=== PATIENT | male | born 1970 | race Caucasian/White ===

== ENCOUNTER 2017-09-17 19:43 | Emergency (ER) | payer MEDICARE ==
[2017-09-17 20:15] LABS: BASOPHILS 0.1 % (0-2); EOSINOPHILS 1.6 % (0-7); HEMATOCRIT 36.9 % (42.0-54.0); HEMOGLOBIN 12.5 g/dL (13.5-17.5); IMMATURE GRANULOCYTES 0.3 % (0-5); LYMPHOCYTES 16.5 % (15-50); MCH 32.5 pg (26.0-34.0); MCHC 33.9 g/dL (31.0-37.0); MCV 95.8 fL (80.0-100.0); MEAN PLATELET VOLUME 11.3 fL (7.4-10.4); MONOCYTES 7.8 % (2-11); NEUTROPHILS 73.7 % (40-80); PLATELET COUNT 166 10x3/uL (130-400); RBC 3.85 10x6/uL (4.20-6.10); RDW 13.1 % (11.5-14.5); WBC 13.6 10x3/uL (4.8-10.8)
[2017-09-17 20:21] LABS: APPEARANCE CLEAR (CLEAR); BILIRUBIN NEGATIVE (NEGATIVE); COLOR DK YELLOW (YELLOW); GLUCOSE NEGATIVE (NEGATIVE); KETONE NEGATIVE (NEGATIVE); NITRITE NEGATIVE (NEGATIVE); PROTEIN NEGATIVE (NEGATIVE); UROBILINOGEN NORMAL (NORMAL)
[2017-09-17 20:30] LABS: ALBUMIN 3.4 g/dL (3.4-5.0); ANION GAP 14.5 mmol/L (8-16); BILIRUBIN - TOTAL 0.62 mg/dL (0.2-1.3); CALCIUM 8.4 mg/dL (8.5-10.1); CARBON DIOXIDE 27.2 mmol/L (21.0-32.0); CREATININE - SERUM 1.3 mg/dL (0.6-1.3); POTASSIUM - SERUM 3.7 mmol/L (3.5-5.1); PROTEIN - SERUM 7.5 g/dL (6.4-8.2)
[2017-09-17 20:41] LABS: BACTERIA FEW /hpf (NONE SEEN); EPITHELIAL CELLS OCC /hpf (0-5); MUCUS <1+ /lpf (NONE SEEN); RED CELLS - URINE 0-5 /hpf (0-5); WHITE CELLS - URINE 0-5 /hpf (0-5)
[2017-09-17 22:06] LABS: PRO BNP 1899 pg/mL (0-125)
[2017-09-17 22:08] LABS: TROPONIN-I < 0.017 ng/mL (0.000-0.060)
== END 2017-09-18 00:40 | disposition home or self-care (01) ==
LOC: D.ER 19:43
PROVIDERS: Family Medicine
DX: J18.9 Pneumonia, unspecified organism (principal)

== ENCOUNTER 2017-12-18 10:17 | Emergency (ER) | payer MEDICARE | END 2017-12-18 13:08 | disposition home or self-care (01) | LOC: D.ER 10:17 | DX: L03.113 Cellulitis of right upper limb (principal); M65.9 Synovitis and tenosynovitis, unspecified; F17.200 Nicotine dependence, unspecified, uncomplicated ==

== ENCOUNTER 2017-12-26 10:06 | Emergency (ER) | payer MEDICARE | END 2017-12-26 15:10 | disposition left against medical advice (07) | LOC: D.ER 10:06 | DX: M79.641 Pain in right hand (principal) ==

== ENCOUNTER 2018-02-15 22:25 | Emergency (ER) | payer MEDICARE ==
[2018-02-15 23:32] LABS: BASOPHILS 0.2 % (0-2); EOSINOPHILS 2.2 % (0-7); HEMATOCRIT 40.5 % (42.0-54.0); HEMOGLOBIN 14.1 g/dL (13.5-17.5); IMMATURE GRANULOCYTES 0.3 % (0-5); LYMPHOCYTES 18.1 % (15-50); MCH 32.8 pg (26.0-34.0); MCHC 34.8 g/dL (31.0-37.0); MCV 94.2 fL (80.0-100.0); MEAN PLATELET VOLUME 10.8 fL (7.4-10.4); MONOCYTES 8.8 % (2-11); NEUTROPHILS 70.4 % (40-80); PLATELET COUNT 197 10x3/uL (130-400); RDW 13.4 % (11.5-14.5); WBC 16.7 10x3/uL (4.8-10.8)
[2018-02-15 23:46] LABS: ALBUMIN 3.7 g/dL (3.4-5.0); ANION GAP 15.3 mmol/L (8-16); BILIRUBIN - TOTAL 0.67 mg/dL (0.2-1.3); CALCIUM 8.6 mg/dL (8.5-10.1); CARBON DIOXIDE 25.7 mmol/L (21.0-32.0); CREATININE - SERUM 1.6 mg/dL (0.6-1.3); PROTEIN - SERUM 7.2 g/dL (6.4-8.2)
[2018-02-16 00:58] LABS: APPEARANCE CLEAR (CLEAR); BILIRUBIN NEGATIVE (NEGATIVE); COLOR YELLOW (YELLOW); GLUCOSE NEGATIVE (NEGATIVE); KETONE NEGATIVE (NEGATIVE); NITRITE NEGATIVE (NEGATIVE); PROTEIN NEGATIVE (NEGATIVE); UROBILINOGEN NORMAL (NORMAL)
== END 2018-02-16 02:56 | disposition home or self-care (01) ==
LOC: D.ER 22:25
PROVIDERS: Emergency Medicine
DX: R10.9 Unspecified abdominal pain (principal); D72.829 Elevated white blood cell count, unspecified; F17.200 Nicotine dependence, unspecified, uncomplicated

== ENCOUNTER 2018-05-28 16:59 | Emergency (ER) | payer MEDICARE ==
[~2018-05-28] VITALS: Ht 175.3 cm; Wt 77.3 kg
[2018-05-28 17:19] VITALS: Ht 175.3 cm; Wt 77.3 kg
[2018-05-28] MEDS ORDERED: ZOCOR80 MG PO (17:21)
[2018-05-28] MEDS ORDERED: OMEPRAZOLE40 MG PO (17:21)
[2018-05-28] MEDS ORDERED: ZOCOR10 MG PO (17:21)
[2018-05-28] MEDS ORDERED: OXYCONTIN15 MG PO (17:21)
[2018-05-28] MEDS ORDERED: PROAIR HFA8.5 GM INH (17:22)
[2018-05-28 17:40] LABS: BASOPHILS 0.4 % (0-2); EOSINOPHILS 4.3 % (0-7); HEMATOCRIT 48.1 % (42.0-54.0); HEMOGLOBIN 17.1 g/dL (13.5-17.5); IMMATURE GRANULOCYTES 0.4 % (0-5); LYMPHOCYTES 28.9 % (15-50); MCH 32.6 pg (26.0-34.0); MCHC 35.6 g/dL (31.0-37.0); MCV 91.8 fL (80.0-100.0); MEAN PLATELET VOLUME 11.3 fL (7.4-10.4); MONOCYTES 5.4 % (2-11); NEUTROPHILS 60.6 % (40-80); PLATELET COUNT 261 10x3/uL (130-400); RBC 5.24 10x6/uL (4.20-6.10); WBC 13.8 10x3/uL (4.8-10.8)
[2018-05-28 18:02] LABS: ALBUMIN 3.9 g/dL (3.4-5.0); ALKALINE PHOSPHATASE 98 U/L (46-116); ALT (SGPT) 22 U/L (10-68); BILIRUBIN - TOTAL 0.26 mg/dL (0.2-1.3); CALC OSMOLALITY 277 mosm/kg (275-300); CALCIUM 9.3 mg/dL (8.5-10.1); CARBON DIOXIDE 25.1 mmol/L (21.0-32.0); CHLORIDE - SERUM 105 mmol/L (98-107); GLUCOSE 102 mg/dL (74-106); POTASSIUM - SERUM 4.2 mmol/L (3.5-5.1); PROTEIN - SERUM 8.2 g/dL (6.4-8.2); SODIUM 140 mmol/L (136-145); UREA NITROGEN 9 mg/dL (7-18); eGFR NON AFRICAN AMERICAN 85 mL/min (90-120)
[2018-05-28 22:18] VITALS: BP 134/71
== END 2018-05-28 21:29 | disposition home or self-care (01) ==
LOC: D.ER 16:59
PROVIDERS: Family Medicine
DX: R10.31 Right lower quadrant pain (principal); Z87.19 Personal history of other diseases of the digestive system; R11.2 Nausea with vomiting, unspecified

== ENCOUNTER 2018-09-13 12:44 | Emergency (ER) | payer MEDICARE ==
[~2018-09-13] VITALS: Ht 175.3 cm; Wt 81.8 kg
[~2018-09-13 12:44] MED LIST: OMEPRAZOLE40 MG PO; OXYCONTIN15 MG PO; PROAIR HFA8.5 GM INH; ZOCOR10 MG PO; ZOCOR80 MG PO
[2018-09-13 12:52] VITALS: BP 138/75; Ht 175.3 cm; Wt 81.8 kg
[2018-09-13] MEDS ORDERED: XANAX1 MG PO (12:55)
[2018-09-13 13:56] LABS: ALBUMIN 3.8 g/dL (3.4-5.0); ANION GAP 18.6 mmol/L (8-16); BILIRUBIN - TOTAL 0.82 mg/dL (0.2-1.3); CALCIUM 8.7 mg/dL (8.5-10.1); CARBON DIOXIDE 23.3 mmol/L (21.0-32.0); CREATININE - SERUM 1.6 mg/dL (0.6-1.3); POTASSIUM - SERUM 3.9 mmol/L (3.5-5.1); PROTEIN - SERUM 7.6 g/dL (6.4-8.2)
[2018-09-13 13:58] LABS: APPEARANCE CLEAR (CLEAR); BASOPHILS 0.3 % (0-2); BILIRUBIN NEGATIVE (NEGATIVE); COLOR YELLOW (YELLOW); EOSINOPHILS 1.1 % (0-7); GLUCOSE NEGATIVE (NEGATIVE); HEMOGLOBIN 13.9 g/dL (13.5-17.5); IMMATURE GRANULOCYTES 0.4 % (0-5); KETONE NEGATIVE (NEGATIVE); LYMPHOCYTES 15.2 % (15-50); MCH 32.6 pg (26.0-34.0); MCHC 34.8 g/dL (31.0-37.0); MCV 93.7 fL (80.0-100.0); MEAN PLATELET VOLUME 11.7 fL (7.4-10.4); MONOCYTES 10.3 % (2-11); NEUTROPHILS 72.7 % (40-80); NITRITE NEGATIVE (NEGATIVE); PROTEIN NEGATIVE (NEGATIVE); RBC 4.27 10x6/uL (4.20-6.10); RDW 14.2 % (11.5-14.5); SPECIFIC GRAVITY 1.015 (1.005-1.020); UROBILINOGEN NORMAL (NORMAL); WBC 18.4 10x3/uL (4.8-10.8)
[2018-09-13 13:59] LABS: PLATELET COUNT 201 10x3/uL (130-400)
== END 2018-09-13 17:16 | disposition left against medical advice (07) ==
LOC: D.ER 12:44
PROVIDERS: Family Medicine
DX: R10.31 Right lower quadrant pain (principal)

== ENCOUNTER → 2018-10-04 | Emergency (ER) | payer MEDICARE ==
[2018-09-13 12:52] VITALS: BMI 26.6
[~2018-10-04] MED LIST changes: +XANAX1 MG PO
== END ==
LOC: D.ER 18:10
DX: M54.2 Cervicalgia (principal); M54.9 Dorsalgia, unspecified

== ENCOUNTER 2018-11-14 11:58 | Emergency (ER) | payer MEDICARE ==
[~2018-11-14] VITALS: Ht 175.3 cm; Wt 81.8 kg
[2018-11-14 12:02] VITALS: Ht 175.3 cm; Wt 81.8 kg
[2018-11-14 12:53] LABS: BASOPHILS 0.3 % (0-2); EOSINOPHILS 7.8 % (0-7); HEMATOCRIT 35.8 % (42.0-54.0); HEMOGLOBIN 12.4 g/dL (13.5-17.5); IMMATURE GRANULOCYTES 0.2 % (0-5); LYMPHOCYTES 26.3 % (15-50); MCH 32.6 pg (26.0-34.0); MCHC 34.6 g/dL (31.0-37.0); MCV 94.2 fL (80.0-100.0); MONOCYTES 6.4 % (2-11); PLATELET COUNT 213 10x3/uL (130-400); RDW 13.8 % (11.5-14.5)
[2018-11-14 13:03] LABS: ALBUMIN 3.1 g/dL (3.4-5.0); ALKALINE PHOSPHATASE 61 U/L (46-116); ALT (SGPT) 14 U/L (10-68); BILIRUBIN - TOTAL 0.25 mg/dL (0.2-1.3); CALC OSMOLALITY 277 mosm/kg (275-300); CALCIUM 8.4 mg/dL (8.5-10.1); CARBON DIOXIDE 25.8 mmol/L (21.0-32.0); CHLORIDE - SERUM 104 mmol/L (98-107); CREATININE - SERUM 1.1 mg/dL (0.6-1.3); POTASSIUM - SERUM 3.7 mmol/L (3.5-5.1); PROTEIN - SERUM 6.4 g/dL (6.4-8.2); SODIUM 139 mmol/L (136-145); UREA NITROGEN 8 mg/dL (7-18); eGFR NON AFRICAN AMERICAN 76 mL/min (90-120)
[2018-11-14 13:06] LABS: AMYLASE - SERUM 33 U/L (25-115); LIPASE 76 U/L (73-393); TROPONIN-I < 0.017 ng/mL (0.000-0.060)
[2018-11-14 13:07] LABS: GLUCOSE 137 mg/dL (74-106)
[2018-11-14 13:25] LABS: APPEARANCE CLEAR (CLEAR); BILIRUBIN NEGATIVE (NEGATIVE); COLOR YELLOW (YELLOW); GLUCOSE NEGATIVE (NEGATIVE); KETONE NEGATIVE (NEGATIVE); NITRITE NEGATIVE (NEGATIVE); PROTEIN NEGATIVE (NEGATIVE); SPECIFIC GRAVITY 1.005 (1.005-1.020)
[2018-11-14] MEDS ORDERED: ROBAXIN500 MG PO (14:31)
[2018-11-14] MEDS ORDERED: TORADOL10 MG PO (14:31)
[2018-11-14 15:12] VITALS: BP 142/88
== END 2018-11-14 15:13 | disposition home or self-care (01) ==
LOC: D.ER 11:58
PROVIDERS: Family Medicine
DX: R10.30 Lower abdominal pain, unspecified (principal); S16.1XXA Strain of muscle, fascia and tendon at neck level, initial encounter; Y04.2XXA Assault by strike against or bumped into by another person, initial encounter; Y93.89 Activity, other specified; Y92.89 Other specified places as the place of occurrence of the external cause; R07.81 Pleurodynia; M54.2 Cervicalgia

== ENCOUNTER 2018-12-20 07:22 | Outpatient (CLI) | payer MEDICARE ==
[2018-11-14 12:02] VITALS: BMI 26.6
[~2018-12-20 07:22] MED LIST changes: +ROBAXIN500 MG PO; +TORADOL10 MG PO
== END 2018-12-20 09:05 | disposition home or self-care (01) ==
LOC: D.OPS 07:22
DX: K21.9 Gastro-esophageal reflux disease without esophagitis (principal)

== ENCOUNTER 2019-02-15 20:46 | Inpatient (IN) | payer MEDICARE ==
[~2019-02-15 20:46] MED LIST changes: +OXY IR30 MG PO; +OXYCODONE HCL5 M1 PO; +ZETIA10 MG PO; +ZOFRAN ODT4 MG/UDTAB PO
[2019-02-15 21:45] LABS: BASOPHILS 0.3 % (0-2); EOSINOPHILS 4.6 % (0-7); HEMATOCRIT 34.7 % (42.0-54.0); IMMATURE GRANULOCYTES 0.2 % (0-5); LYMPHOCYTES 17.1 % (15-50); MCH 32.2 pg (26.0-34.0); MCHC 34.6 g/dL (31.0-37.0); MEAN PLATELET VOLUME 10.7 fL (7.4-10.4); MONOCYTES 9.5 % (2-11); NEUTROPHILS 68.3 % (40-80); PLATELET COUNT 273 10x3/uL (130-400); RBC 3.73 10x6/uL (4.20-6.10); RDW 13.6 % (11.5-14.5); WBC 18.2 10x3/uL (4.8-10.8)
[2019-02-15 21:54] LABS: ALBUMIN 2.9 g/dL (3.4-5.0); ALKALINE PHOSPHATASE 76 U/L (46-116); ALT (SGPT) 39 U/L (10-68); AMYLASE - SERUM 25 U/L (25-115); BILIRUBIN - TOTAL 0.36 mg/dL (0.2-1.3); CALC OSMOLALITY 268 mosm/kg (275-300); CALCIUM 8.5 mg/dL (8.5-10.1); CARBON DIOXIDE 29.7 mmol/L (21.0-32.0); CHLORIDE - SERUM 99 mmol/L (98-107); CREATININE - SERUM 1.1 mg/dL (0.6-1.3); LIPASE 63 U/L (73-393); POTASSIUM - SERUM 3.8 mmol/L (3.5-5.1); PROTEIN - SERUM 7.1 g/dL (6.4-8.2); SODIUM 136 mmol/L (136-145); UREA NITROGEN 7 mg/dL (7-18); eGFR NON AFRICAN AMERICAN 76 mL/min (90-120)
[2019-02-15 21:55] LABS: GLUCOSE 82 mg/dL (74-106)
[2019-02-15 23:49] VITALS: BP 130/82
[2019-02-16] VITALS (7 sets, daily range): BP systolic 101–148; BP diastolic 58–88; BMI 26.2; BMI 26.1
[2019-02-16 08:12] LABS: APPEARANCE CLEAR (CLEAR); BILIRUBIN NEGATIVE (NEGATIVE); COLOR YELLOW (YELLOW); GLUCOSE NEGATIVE (NEGATIVE); KETONE NEGATIVE (NEGATIVE); NITRITE NEGATIVE (NEGATIVE); PROTEIN NEGATIVE (NEGATIVE); UROBILINOGEN NORMAL (NORMAL)
[2019-02-16 09:14] LABS: BASOPHILS 0.4 % (0-2); EOSINOPHILS 8.1 % (0-7); HEMATOCRIT 34.8 % (42.0-54.0); HEMOGLOBIN 11.8 g/dL (13.5-17.5); IMMATURE GRANULOCYTES 0.4 % (0-5); LYMPHOCYTES 21.5 % (15-50); MCH 31.6 pg (26.0-34.0); MCHC 33.9 g/dL (31.0-37.0); MEAN PLATELET VOLUME 10.4 fL (7.4-10.4); MONOCYTES 11.3 % (2-11); NEUTROPHILS 58.3 % (40-80); PLATELET COUNT 251 10x3/uL (130-400); RBC 3.74 10x6/uL (4.20-6.10); RDW 13.7 % (11.5-14.5)
[2019-02-16 09:22] LABS: CALC OSMOLALITY 276 mosm/kg (275-300); CALCIUM 8.5 mg/dL (8.5-10.1); CARBON DIOXIDE 29.3 mmol/L (21.0-32.0); CHLORIDE - SERUM 105 mmol/L (98-107); CREATININE - SERUM 0.9 mg/dL (0.6-1.3); GLUCOSE 89 mg/dL (74-106); POTASSIUM - SERUM 3.8 mmol/L (3.5-5.1); SODIUM 141 mmol/L (136-145); UREA NITROGEN 4 mg/dL (7-18); eGFR NON AFRICAN AMERICAN > 90 mL/min (90-120)
[2019-02-16 09:24] LABS: WBC 11.2 10x3/uL (4.8-10.8)
[2019-02-17] VITALS: BP 131/71
[2019-02-17 03:00] VITALS: BP 146/83
[2019-02-17 06:34] LABS: BASOPHILS 0.1 % (0-2); EOSINOPHILS 0.2 % (0-7); HEMATOCRIT 36.4 % (42.0-54.0); HEMOGLOBIN 12.7 g/dL (13.5-17.5); IMMATURE GRANULOCYTES 0.3 % (0-5); LYMPHOCYTES 12.1 % (15-50); MCH 31.7 pg (26.0-34.0); MCHC 34.9 g/dL (31.0-37.0); MEAN PLATELET VOLUME 10.2 fL (7.4-10.4); MONOCYTES 6.5 % (2-11); NEUTROPHILS 80.8 % (40-80); RBC 4.01 10x6/uL (4.20-6.10); RDW 13.3 % (11.5-14.5)
[2019-02-17 06:37] LABS: MCV 90.8 fL (80.0-100.0); PLATELET COUNT 347 10x3/uL (130-400)
[2019-02-17 06:44] LABS: CALC OSMOLALITY 274 mosm/kg (275-300); CARBON DIOXIDE 26.4 mmol/L (21.0-32.0); CHLORIDE - SERUM 103 mmol/L (98-107); CREATININE - SERUM 0.8 mg/dL (0.6-1.3); GLUCOSE 108 mg/dL (74-106); POTASSIUM - SERUM 4.1 mmol/L (3.5-5.1); SODIUM 138 mmol/L (136-145); eGFR NON AFRICAN AMERICAN > 90 mL/min (90-120)
[2019-02-17 06:45] LABS: UREA NITROGEN 6 mg/dL (7-18)
[2019-02-17 09:08] VITALS: BP 176/77
[2019-02-17 12:18] VITALS: BP 162/86
[2019-02-17 17:06] VITALS: BP 157/80
[2019-02-18] VITALS: BP 148/67
[2019-02-18 03:00] VITALS: BP 131/59
[2019-02-18 04:07] LABS: BASOPHILS 0.2 % (0-2); EOSINOPHILS 1.8 % (0-7); HEMATOCRIT 36.5 % (42.0-54.0); HEMOGLOBIN 12.7 g/dL (13.5-17.5); IMMATURE GRANULOCYTES 0.3 % (0-5); LYMPHOCYTES 21.8 % (15-50); MCH 31.4 pg (26.0-34.0); MCHC 34.8 g/dL (31.0-37.0); MCV 90.1 fL (80.0-100.0); MEAN PLATELET VOLUME 10.1 fL (7.4-10.4); MONOCYTES 8.8 % (2-11); NEUTROPHILS 67.1 % (40-80); PLATELET COUNT 365 10x3/uL (130-400); RBC 4.05 10x6/uL (4.20-6.10); RDW 13.1 % (11.5-14.5); WBC 12.8 10x3/uL (4.8-10.8)
[2019-02-18 04:12] LABS: CALC OSMOLALITY 272 mosm/kg (275-300); CALCIUM 8.8 mg/dL (8.5-10.1); CARBON DIOXIDE 25.7 mmol/L (21.0-32.0); CHLORIDE - SERUM 102 mmol/L (98-107); CREATININE - SERUM 0.7 mg/dL (0.6-1.3); GLUCOSE 106 mg/dL (74-106); POTASSIUM - SERUM 3.6 mmol/L (3.5-5.1); SODIUM 138 mmol/L (136-145); UREA NITROGEN 5 mg/dL (7-18); eGFR NON AFRICAN AMERICAN > 90 mL/min (90-120)
[2019-02-18 08:46] VITALS: BP 136/83
[2019-02-18 13:17] VITALS: BP 137/92
[2019-02-18 16:47] VITALS: BP 130/81
[2019-02-18 21:01] VITALS: BP 144/86
[2019-02-19 01:05] VITALS: BP 138/84
[2019-02-19 05:37] VITALS: BP 126/77
[2019-02-19 06:20] LABS: BASOPHILS 0.4 % (0-2); EOSINOPHILS 4.9 % (0-7); HEMATOCRIT 36.2 % (42.0-54.0); HEMOGLOBIN 12.4 g/dL (13.5-17.5); IMMATURE GRANULOCYTES 0.3 % (0-5); LYMPHOCYTES 26.8 % (15-50); MCH 31.1 pg (26.0-34.0); MCHC 34.3 g/dL (31.0-37.0); MCV 90.7 fL (80.0-100.0); MEAN PLATELET VOLUME 10.4 fL (7.4-10.4); MONOCYTES 11.1 % (2-11); NEUTROPHILS 56.5 % (40-80); PLATELET COUNT 388 10x3/uL (130-400); RBC 3.99 10x6/uL (4.20-6.10); RDW 13.4 % (11.5-14.5); WBC 11.9 10x3/uL (4.8-10.8)
[2019-02-19 06:39] LABS: CALC OSMOLALITY 276 mosm/kg (275-300); CALCIUM 8.5 mg/dL (8.5-10.1); CARBON DIOXIDE 27.6 mmol/L (21.0-32.0); CHLORIDE - SERUM 104 mmol/L (98-107); CREATININE - SERUM 0.7 mg/dL (0.6-1.3); GLUCOSE 107 mg/dL (74-106); POTASSIUM - SERUM 4.2 mmol/L (3.5-5.1); SODIUM 140 mmol/L (136-145); UREA NITROGEN 6 mg/dL (7-18); eGFR NON AFRICAN AMERICAN > 90 mL/min (90-120)
[2019-02-19 08:57] VITALS: BP 154/86
[2019-02-19] MEDS ORDERED: MIRALAX17 GM PO (12:26)
[2019-02-19] MEDS ORDERED: TESSALON PERLE100 MG PO (12:27)
[2019-02-19] MEDS ORDERED: VIBRAMYCIN 100100 MG PO (12:27)
[2019-02-19] MEDS ORDERED: MUCINEX600 MG PO (12:27)
[2019-02-19] MEDS ORDERED: Nicoderm [PBKC] TRANSDERM (12:28)
[2019-02-19] MEDS ORDERED: FLORAJEN3 CAPS460 MG PO (12:31)
[2019-02-19] MEDS ORDERED: OXYCODONE HCL5 M1 PO (12:32)
--- NOTE | 2019-02-19 14:10 | MORECARE ---
CASE MANAGEMENT DISCHARGE SUMMARY PATIENT: NAINA KING UNIT: [id number] ADM DATE: 02/16/19 AGE: 49 : 72 SEX: M ROOM/BED: D.2204 AUTHOR: FARHANDOC PHYSICIAN: REFERRING PHYSICIAN: ROSELIA VILLASENOR MD DATE OF SERVICE: 02/19/19 Discharge Plan Patient Name: NAINA KING Facility: [facility]:[place] : 1970 Planned Disposition: Home or Self Care Anticipated Discharge Date: Discharge Date: Expected LOS: Initial Reviewer: [id number] Initial Review Date: 02/16/2019 Generated: 02/19/19 3:10 pm Comments DCP- Discharge Planning Updated by [email or web address]: Meg Crenshaw on 02/19/19 1:[address] Patient Name: NAINA KING Admission Status: ER Accout number: [id number] Admission Date: 02-16-2019 : 1970 Admission Diagnosis:UNSPECIFIED ABDOMINAL PAIN Attending: ROSELIA VILLASENOR Current LOS: 3 Anticipated DC Date: Planned Disposition: Home or Self Care Primary Insurance: MEDICARE A & B Discharge Planning Comments: CM met with patient to complete initial dc planning assessment. CM educated patient on the CM role and verbal consent given by patient to complete assessment. Patient lives at home with his cousin. At discharge patient plans to return home and feels this is a safe discharge. CM discussed availability of home health, rehab services, and medical equipment. Patient denied known discharge needs at this time. Patient's cousin will be driving him home. IMM served and explained CM will continue to follow and will assist as needed with dc plans/needs. Logging Engineer: Meg Crenshaw DCPIA - Discharge Planning Initial Assessment Updated by [email or web address]: Meg Crenshaw on 02/19/19 2:05 pm * Is the patient Alert and Oriented? Yes * How many steps to enter\exit or inside your home? * PCP RENÉ * Pharmacy [facility] * Preadmission Environment Home with Family * ADLs Independent * Equipment None * List name and contact numbers for known caregivers / representatives who currently or will assist patient after discharge: ESHA BUSTILLOS (COUSIN) [phone] * Verbal permission to speak to the caregivers and representatives has been obtained from the patient. N/A * Community resources currently utilized None * Additional services required to return to the preadmission environment? No * Can the patient safely return to the preadmission environment? Yes * Has this patient been hospitalized within the prior 30 days at any hospital? No Coverage Notice Reviewer: [id number] Scar Crenshaw Notice Issued Date-Time: 02/19/2019 14:00 Notice Type: IM Discharge Notice Notice Delivered To: Patient Relationship to Patient: Customer Security Clerk Name: Delivery Method: HAND - Hand Delivered Liz Days: Prior Verbal Notification: Recipient Understood Notice: Yes Recipient Signature: Yes Med Rec Note Co-signed by Attending: Coverage Notice Comment: Patient Name: NAINA KING Page 76038 at 1410 All edits/amendments must be made on the electronic document DICTATION DATE: 02/19/191409 VOICE TEACHER: HOMA 02/19/19 1410 RPT#: [id number] DC DATE: STATUS: ADM IN [facility] [address] [place] [address] END OF REPORT
--- NOTE | 2019-02-21 16:28 | MORECARE ---
CASE MANAGEMENT DISCHARGE SUMMARY PATIENT: NAINA KING UNIT: [id number] ADM DATE: 02/16/19 AGE: 49 : 72 SEX: M ROOM/BED: D.2204 AUTHOR: FARHAN,DOC PHYSICIAN: REFERRING PHYSICIAN: ROSELIA VILLASENOR MD DATE OF SERVICE: 02/21/19 Discharge Plan Patient Name: NAINA KING Facility: [facility]:[place] : 1970 Planned Disposition: Home or Self Care Anticipated Discharge Date: Discharge Date: 02/19/2019 Expected LOS: Initial Reviewer: [id number] Initial Review Date: 02/16/2019 Generated: 02/21/19 5:28 pm Comments DCP- Discharge Planning Updated by [id number]: Meg Crenshaw on 02/19/19 1:[address] Patient Name: NAINA KING Admission Status: ER Accout number: [id number] Admission Date: 02-16-2019 : 1970 Admission Diagnosis:UNSPECIFIED ABDOMINAL PAIN Attending: ROSELIA VILLASENOR Current LOS: 3 Anticipated DC Date: Planned Disposition: Home or Self Care Primary Insurance: MEDICARE A & B Discharge Planning Comments: CM met with patient to complete initial dc planning assessment. CM educated patient on the CM role and verbal consent given by patient to complete assessment. Patient lives at home with his cousin. At discharge patient plans to return home and feels this is a safe discharge. CM discussed availability of home health, rehab services, and medical equipment. Patient denied known discharge needs at this time. Patient's cousin will be driving him home. IMM served and explained CM will continue to follow and will assist as needed with dc plans/needs. Wick And Base Assembler: Mge Crenshaw DCPIA - Discharge Planning Initial Assessment Updated by [id number]: Meg Crenshaw on 02/19/19 2:05 pm * Is the patient Alert and Oriented? Yes * How many steps to enter\exit or inside your home? * PCP RENÉ * Pharmacy [facility] * Preadmission Environment Home with Family * ADLs Independent * Equipment None * List name and contact numbers for known caregivers / representatives who currently or will assist patient after discharge: ESHA BUSTILLOS (COUSIN) [phone] * Verbal permission to speak to the caregivers and representatives has been obtained from the patient. N/A * Community resources currently utilized None * Additional services required to return to the preadmission environment? No * Can the patient safely return to the preadmission environment? Yes * Has this patient been hospitalized within the prior 30 days at any hospital? No Coverage Notice Reviewer: [id number] Scar Crenshaw Notice Issued Date-Time: 02/19/2019 14:00 Notice Type: IM Discharge Notice Notice Delivered To: Patient Relationship to Patient: Douper Name: Delivery Method: HAND - Hand Delivered Liz Days: Prior Verbal Notification: Recipient Understood Notice: Yes Recipient Signature: Yes Med Rec Note Co-signed by Attending: Coverage Notice Comment: Last DP export: 02/19/19 1:10 p Patient Name: NAINA KING Page [id number] at 1628 All edits/amendments must be made on the electronic document DICTATION DATE: 02/21/191626 AIRCRAFT MAINTENANCE DIRECTOR: HOMA 02/21/191626 RPT#: [id number] DC DATE:02/19/19 STATUS: DIS IN [facility] [address] [place] [address] END OF REPORT
== END 2019-02-19 16:22 | disposition home or self-care (01) | DRG 947 ==
LOC: D.ER 20:46 → D.MS 02-16 00:35
PROVIDERS: Emergency Medicine; ADMIT Internal Medicine Nephrology
DX: G89.18 Other acute postprocedural pain (principal); J18.9 Pneumonia, unspecified organism; F17.213 Nicotine dependence, cigarettes, with withdrawal; K56.7 Ileus, unspecified; R10.9 Unspecified abdominal pain; D73.5 Infarction of spleen; E78.5 Hyperlipidemia, unspecified; K57.90 Diverticulosis of intestine, part unspecified, without perforation or abscess without bleeding; D64.9 Anemia, unspecified

== ENCOUNTER 2019-04-15 15:11 | Observation (INO) | payer MEDICARE ==
[~2019-04-15] VITALS: Ht 175.3 cm; Wt 72.6 kg
[~2019-04-15 15:11] MED LIST changes: +FLORAJEN3 CAPS460 MG PO; +MIRALAX17 GM PO; +MUCINEX600 MG PO; +Nicoderm [PBKC] TRANSDERM; +TESSALON PERLE100 MG PO; +VIBRAMYCIN 100100 MG PO
[2019-04-15 16:40] LABS: BASOPHILS 0.3 % (0-2); EOSINOPHILS 1.7 % (0-7); HEMATOCRIT 45.7 % (42.0-54.0); HEMOGLOBIN 15.8 g/dL (13.5-17.5); IMMATURE GRANULOCYTES 0.4 % (0-5); LYMPHOCYTES 27.1 % (15-50); MCH 32.1 pg (26.0-34.0); MCHC 34.6 g/dL (31.0-37.0); MCV 92.9 fL (80.0-100.0); MEAN PLATELET VOLUME 11.3 fL (7.4-10.4); NEUTROPHILS 63.5 % (40-80); PLATELET COUNT 368 10x3/uL (130-400); RBC 4.92 10x6/uL (4.20-6.10); RDW 15.4 % (11.5-14.5); WBC 18.5 10x3/uL (4.8-10.8)
[2019-04-15 17:10] LABS: ALBUMIN 3.5 g/dL (3.4-5.0); ALKALINE PHOSPHATASE 105 U/L (46-116); ALT (SGPT) 14 U/L (10-68); BILIRUBIN - TOTAL 0.23 mg/dL (0.2-1.3); CALC OSMOLALITY 275 mosm/kg (275-300); CALCIUM 9.2 mg/dL (8.5-10.1); CARBON DIOXIDE 25.7 mmol/L (21.0-32.0); CHLORIDE - SERUM 105 mmol/L (98-107); CREATININE - SERUM 1.1 mg/dL (0.6-1.3); GLUCOSE 72 mg/dL (74-106); POTASSIUM - SERUM 4.1 mmol/L (3.5-5.1); PROTEIN - SERUM 7.6 g/dL (6.4-8.2); SODIUM 139 mmol/L (136-145); UREA NITROGEN 9 mg/dL (7-18); eGFR NON AFRICAN AMERICAN 76 mL/min (90-120)
[2019-04-15 17:13] LABS: AMYLASE - SERUM 50 U/L (25-115); LIPASE 127 U/L (73-393); TROPONIN-I < 0.017 ng/mL (0.000-0.060)
--- NOTE | 2019-04-15 19:05 | NUR ---
PT RESTING ON BED. PT PROVIDED WARM BLANKET PER REQUEST. PT DENIES FURTHER NEEDS AT THIS TIME.
--- NOTE | 2019-04-15 19:07 | NUR ---
REPORT TO IFEANYI BRADY AT THIS TIME.
--- NOTE | 2019-04-15 20:05 | NUR ---
PT RESTING ON BED. URINE SPECIMEN SENT TO LAB. PT UPDATED ON PLAN OF CARE.
[2019-04-15 20:08] VITALS: BP 113/87
[2019-04-15 20:39] LABS: APPEARANCE CLEAR (CLEAR); BILIRUBIN NEGATIVE (NEGATIVE); COLOR YELLOW (YELLOW); GLUCOSE NEGATIVE (NEGATIVE); KETONE NEGATIVE (NEGATIVE); NITRITE NEGATIVE (NEGATIVE); PROTEIN NEGATIVE (NEGATIVE); UROBILINOGEN NORMAL (NORMAL)
--- NOTE | 2019-04-15 21:46 | NUR ---
PT LEFT ED VIA WC FOR CT.
--- NOTE | 2019-04-15 22:00 | NUR ---
PT RETURNED VIA WC FROM CT.
--- NOTE | 2019-04-15 22:40 | NUR ---
PT REPORTS PAIN HAD DECREASED AFTER FENTANYL. PT REPORTS PAIN IS RETURNING AT THIS TIME.
[2019-04-16 00:39] VITALS: BP 129/89; BMI 23.6
[2019-04-16 04:30] VITALS: BP 105/60
[2019-04-16 06:52] LABS: BASOPHILS 0.6 % (0-2); EOSINOPHILS 6.1 % (0-7); HEMATOCRIT 41.7 % (42.0-54.0); HEMOGLOBIN 13.7 g/dL (13.5-17.5); IMMATURE GRANULOCYTES 0.2 % (0-5); LYMPHOCYTES 34.5 % (15-50); MCH 31.2 pg (26.0-34.0); MCHC 32.9 g/dL (31.0-37.0); MEAN PLATELET VOLUME 11.3 fL (7.4-10.4); MONOCYTES 7.6 % (2-11); PLATELET COUNT 330 10x3/uL (130-400); RBC 4.39 10x6/uL (4.20-6.10); RDW 15.7 % (11.5-14.5)
[2019-04-16 07:05] LABS: WBC 12.6 10x3/uL (4.8-10.8)
--- NOTE | 2019-04-16 07:29 | NUR ---
INITIAL ROUNDING ON THE PATIENTS, HE IS AWAKE AND REPORTING PAIN IN HIS RIGHT LATERAL SIDE, AND REQUESTED HIS PAIN MED 1 HOUR EARLY. CALL LIGHT IN REACH. HE IS PLAYING ON HIS CELL PHONE, ON ROOM AIR AND HE IS DRESSED IN HIS STREET CLOTHES AND BASEBALL CAP.
[2019-04-16 07:32] VITALS: BP 136/71
[2019-04-16 07:34] LABS: CALCIUM 8.4 mg/dL (8.5-10.1); CARBON DIOXIDE 26.1 mmol/L (21.0-32.0); MAGNESIUM - SERUM 1.8 mg/dL (1.8-2.4); PHOSPHOROUS 3.3 mg/dL (2.5-4.9); UREA NITROGEN 9 mg/dL (7-18); eGFR NON AFRICAN AMERICAN 85 mL/min (90-120)
[2019-04-16 07:43] LABS: CALC OSMOLALITY 281 mosm/kg (275-300); CHLORIDE - SERUM 109 mmol/L (98-107); POTASSIUM - SERUM 4.1 mmol/L (3.5-5.1); SODIUM 143 mmol/L (136-145)
[2019-04-16 07:44] LABS: GLUCOSE 57 mg/dL (74-106)
[2019-04-16 08:31] VITALS: BMI 23.6
--- NOTE | 2019-04-16 09:57 | MORECARE ---
CASE MANAGEMENT DISCHARGE SUMMARY PATIENT: NAINA KING UNIT: [id number] ADM DATE: 04/15/19 AGE: 49 : 72 SEX: M ROOM/BED: D.1205 AUTHOR: FARHAN,DOC PHYSICIAN: REFERRING PHYSICIAN: OLU BALDERRAMA DO DATE OF SERVICE: 04/16/19 Discharge Plan Patient Name: NAINA KING Facility: [facility]:[place] : 1970 Planned Disposition: Anticipated Discharge Date: Discharge Date: Expected LOS: Initial Reviewer: [email or web address] Initial Review Date: 04/16/2019 Generated: 04/16/19 10:57 am Comments DCP- Discharge Planning Updated by [email or web address]: Rachna Bradford on 04/16/19 8:[address] Patient Name: NAINA KING Admission Status: ER Accout number: [id number] Admission Date: 04-15-2019 : 1970 Admission Diagnosis: Attending: OLU BALDERRAMA Current LOS: 1 Anticipated DC Date: Planned Disposition: Primary Insurance: MEDICARE A & B Discharge Planning Comments: CM met with patient to complete initial dc planning assessment. CM educated patient on the CM role and verbal consent given by patient to complete assessment. CM verified patient's address, phone number, and emergency contact phone numbers. Patient lives at home and reports He is independent in HIS care. At discharge patient plans to return home and feels this is a safe discharge. CM discussed availability of home health, rehab services, and medical equipment. Patient denied known discharge needs at this time.. CM will continue to follow and will assist as needed with dc plans/needs. Electromechanisms Design Drafter: Rachna Bradford DCPIA - Discharge Planning Initial Assessment Updated by [email or web address]: Rachna Bradford on 04/16/19 9:51 am * Is the patient Alert and Oriented? Yes * How many steps to enter\exit or inside your home? * PCP CASIE * Pharmacy [facility] * Preadmission Environment Home Alone * ADLs Independent * Verbal permission to speak to the caregivers and representatives has been obtained from the patient. N/A * Additional services required to return to the preadmission environment? No * Can the patient safely return to the preadmission environment? Yes * Has this patient been hospitalized within the prior 30 days at any hospital? No Patient Name: NAINA KING Page 40514 at 0957 All edits/amendments must be made on the electronic document DICTATION DATE: 04/16/19955 TORPEDO MAN: HOMA 04/16/19955 RPT#: [id number] DC DATE: STATUS: ADM IN [facility] [address] [place] [address] END OF REPORT
[2019-04-16 10:57] VITALS: Ht 175.3 cm; Wt 72.6 kg
[2019-04-16 17:06] VITALS: BP 135/86
--- NOTE | 2019-04-16 18:41 | NUR ---
SNOW LUCAS, ASSOCIATE PUBLISHER TO INQUIRE ABOUT CHANGING HIS PAIN MEDICATION TO HIS HOME MEDICATION OXCODONE 15 MG QID AND ANXIETY MED XANAX 1 MG BID. SHAYY DID NOT GIVE AN ORDER, SHE STATED SHE WILL HAVE BRET COME TO SEE THE PATIENT.
[2019-04-16 20:00] VITALS: BP 143/95
--- NOTE | 2019-04-16 20:02 | NUR ---
ACCORDING TO DAY SHIFT NURSE, PT FSBS WAS 57 THIS MORNING. RECHECKED PT FSBS NOW 102. SAW PT DINNER TRAY IN TABLE, PT STATES: "HE HAS NOT ATE HIS DINNER." REMIND PT EAT HIS DINNER.
--- NOTE | 2019-04-16 21:05 | NUR ---
PT C/O NAUSEA, ZOFRAN GIVEN ORDERED.
--- NOTE | 2019-04-17 00:12 | NUR ---
PT C/O PAIN IN ABD AREA, A LEVEL OF 8, DILAUDID 1 MG GIVEN ORDERED.
[2019-04-17 04:00] VITALS: BP 131/84
--- NOTE | 2019-04-17 04:34 | NUR ---
REST QUIETLY IN BED. CALL LIGHT IN REACH.
--- NOTE | 2019-04-17 05:30 | NUR ---
PT STATES:" HE WANT TO GO OUT TO HIS CAR, AND WILL BE BACK ABOUT 5 MINUTES."
--- NOTE | 2019-04-17 05:40 | NUR ---
PT COME BACK FROM OUTSIDE.
[2019-04-17 07:00] LABS: BASOPHILS 0.6 % (0-2); EOSINOPHILS 5.6 % (0-7); HEMATOCRIT 40.6 % (42.0-54.0); HEMOGLOBIN 13.7 g/dL (13.5-17.5); IMMATURE GRANULOCYTES 0.2 % (0-5); LYMPHOCYTES 39.2 % (15-50); MCH 31.8 pg (26.0-34.0); MCHC 33.7 g/dL (31.0-37.0); MCV 94.2 fL (80.0-100.0); MEAN PLATELET VOLUME 11.1 fL (7.4-10.4); MONOCYTES 5.4 % (2-11); PLATELET COUNT 301 10x3/uL (130-400); RBC 4.31 10x6/uL (4.20-6.10); RDW 15.2 % (11.5-14.5); WBC 11.4 10x3/uL (4.8-10.8)
--- NOTE | 2019-04-17 07:00 | NUR ---
INITIAL ROUNDING, PATIENT IS AWAKE AND REQUESTING TO DISCONNECT HIS IV SO HE CAN GO OUT TO SMOKE. OFFERED THE PATIENT A PATCH AGAIN, HE REFUSED. INSTRUCTED ON FALL PRECAUTIONS.
[2019-04-17 07:20] VITALS: BP 123/79
[2019-04-17 07:24] LABS: ALKALINE PHOSPHATASE 87 U/L (46-116); ALT (SGPT) 17 U/L (10-68); BILIRUBIN - TOTAL 0.21 mg/dL (0.2-1.3); CALCIUM 8.4 mg/dL (8.5-10.1); CARBON DIOXIDE 28.3 mmol/L (21.0-32.0); CHLORIDE - SERUM 107 mmol/L (98-107); CREATININE - SERUM 0.9 mg/dL (0.6-1.3); MAGNESIUM - SERUM 1.6 mg/dL (1.8-2.4); PHOSPHOROUS 3.8 mg/dL (2.5-4.9); PROTEIN - SERUM 5.9 g/dL (6.4-8.2); SODIUM 141 mmol/L (136-145); UREA NITROGEN 8 mg/dL (7-18); eGFR NON AFRICAN AMERICAN > 90 mL/min (90-120)
[2019-04-17 07:25] LABS: CALC OSMOLALITY 276 mosm/kg (275-300); GLUCOSE 63 mg/dL (74-106)
[2019-04-17 07:26] LABS: ALBUMIN 2.6 g/dL (3.4-5.0); C-REACTIVE PROTEIN < 0.2 mg/dL (0.0-0.9)
[2019-04-17] MEDS ORDERED: CIPRO500 MG PO (09:44)
[2019-04-17] MEDS ORDERED: FLAGYL500 MG PO (09:44)
--- NOTE | 2019-04-17 10:09 | NUR ---
OFFERED THE PATIENT THE ONE TIME DOSE OF BUSPAR ORDERED FOR ANXIETY, HE REFUSED THIS STATING, THATS NOT XANAX, I DONT WANT TO TAKE SOMETHING I HAVE NEVER HAD BEFORE. AND ASKED TO BE DISCONNECTED FROM HIS IV TO GO SMOKE. IT WAS EXPLAINED TO HIM THAT THE ANTIBIOTICS ARE STILL INFUSING AND HE COULD NOT BE DISCONNECTED AT THIS TIME.
--- NOTE | 2019-04-17 10:34 | NUR ---
REMOVED THE PATIENTS IV FROM RIGHT FA, CATH TIP IN TACT.
--- NOTE | 2019-04-17 11:10 | NUR ---
THE PATIENT WAS SUPPOSED TO GET ANOTHER MG PILL AT 1230, BUT SEEMS TO HAVE LEFT WITHOUT WAITING. HE HAS HIS DISCHARGE PAPERWORK, AND INSTRUCTIONS. IV WAS REMOVED, TELE REMOVED.
--- NOTE | 2019-04-17 17:10 | MORECARE ---
CASE MANAGEMENT DISCHARGE SUMMARY PATIENT: NAINA KING UNIT: [id number] ADM DATE: 04/15/19 AGE: 49 : 72 SEX: M ROOM/BED: D.1205 AUTHOR: FARHAN,DOC PHYSICIAN: REFERRING PHYSICIAN: OLU BALDERRAMA DO DATE OF SERVICE: 04/17/19 Discharge Plan Patient Name: NAINA KING Facility: [facility]:[place] : 1970 Planned Disposition: Anticipated Discharge Date: Discharge Date: 04/17/2019 Expected LOS: Initial Reviewer: [id number] Initial Review Date: 04/16/2019 Generated: 04/17/19 6:09 pm Comments DCP- Discharge Planning Updated by [email or web address]: Rachna Bradford on 04/16/19 8:[address] Patient Name: NAINA KING Admission Status: ER Accout number: [id number] Admission Date: 04-15-2019 : 1970 Admission Diagnosis: Attending: OLU BALDERRAMA Current LOS: 1 Anticipated DC Date: Planned Disposition: Primary Insurance: MEDICARE A & B Discharge Planning Comments: CM met with patient to complete initial dc planning assessment. CM educated patient on the CM role and verbal consent given by patient to complete assessment. CM verified patient's address, phone number, and emergency contact phone numbers. Patient lives at home and reports He is independent in HIS care. At discharge patient plans to return home and feels this is a safe discharge. CM discussed availability of home health, rehab services, and medical equipment. Patient denied known discharge needs at this time.. CM will continue to follow and will assist as needed with dc plans/needs. Card Assembler: Rachna Bradford DCPIA - Discharge Planning Initial Assessment Updated by [email or web address]: Rachna Bradford on 04/16/19 9:51 am * Is the patient Alert and Oriented? Yes * How many steps to enter\exit or inside your home? * PCP CASIE * Pharmacy [facility] * Preadmission Environment Home Alone * ADLs Independent * Verbal permission to speak to the caregivers and representatives has been obtained from the patient. N/A * Additional services required to return to the preadmission environment? No * Can the patient safely return to the preadmission environment? Yes * Has this patient been hospitalized within the prior 30 days at any hospital? No Coverage Notice Reviewer: [id number] Scar Bradford Notice Issued Date-Time: 04/16/2019 13:15 Notice Type: Medicare Outpatient Observation Notice Notice Delivered To: Patient Relationship to Patient: Self Cream Gatherer Name: Delivery Method: HAND - Hand Delivered Liz Days: Prior Verbal Notification: Recipient Understood Notice: Yes Recipient Signature: Yes Med Rec Note Co-signed by Attending: Coverage Notice Comment: Last DP export: 04/16/19 8:57 a Patient Name: NAINA KING Page 92738 at 1710 All edits/amendments must be made on the electronic document DICTATION DATE: 04/17/191708 EMAIL PRODUCER: HOMA 04/17/191708 RPT#: [id number] DC DATE:04/17/19 STATUS: DIS IN [facility] [address] [place] [address] END OF REPORT
== END 2019-04-17 11:11 | disposition home or self-care (01) ==
LOC: D.ER 15:11 → OBSVTIME 23:22 → D.M3 23:22
PROVIDERS: Emergency Medicine; Family Medicine; ADMIT Family Medicine; ATTEND Family Medicine
DX: K52.9 Noninfective gastroenteritis and colitis, unspecified (principal); G89.29 Other chronic pain; E78.5 Hyperlipidemia, unspecified